=== PATIENT | female | born 2000 | race Caucasian/White ===

== ENCOUNTER 2018-03-23 11:32 | Emergency (ER) | payer OTHER ==
[2018-03-23 11:35] VITALS: TEMP 36.8
[2018-03-23] MEDS ORDERED: VALA1TAB31 PO (12:26)
--- NOTE | 2018-03-23 12:28 | EMERGENCY ROOM VISIT NOTE ---
History First contact with patient: 11:56 Chief Complaint: PELVIC PAIN Stated Complaint: VAGINAL BURNING AND SWELLING History of Present Illness The patient is a 18 year old female who presents to the Emergency Room with complaints of pain and swelling of her labia. Patient states that she started with the symptoms on and have been getting progressively worse. The patient thought at first that she had a UTI and just took some cranberry but that did not help. She then noticed some sores on her labia and in the genital region. The patient also admits to mild pruritus in the vaginal area. The patient denies any nausea vomiting or abdominal pain. She does admit to some discharge which she describes as white and thick. The patient denies any history of STDs. The patient is currently sexually active with her recent partner for the last 2-1/2 months. She has had for sexual partners in her lifetime. Her partners sexual history is unknown. She states that her current sexual partner stated that he was tested for all sexually transmitted diseases and was negative. Review of Systems 10 system review was performed and was negative unless stated otherwise history of present illness. Past Medical/Surgical History Asthma Social History Smoking Status: Heavy Tobacco Smoker Physical Exam Vital Signs Date Time Temp Pulse Resp B/P (MAP) Pulse Ox O2 Delivery O2 Flow Rate FiO2 03/23/18 11:35 36.8 74 20 122/57 96 Room Air Physical Exam GENERAL: 18-year-old white female appears in no acute distress. MENTAL Status: Alert and oriented 3. NECK: Supple, no lymphadenopathy noted. No carotid bruits noted. LUNGS: Clear auscultation without wheezes rales or rhonchi. CARDIAC: Regular rate and rhythm without murmur. Pulses is full and equal throughout. BACK: No CVA tenderness noted. ABDOMEN: Positive bowel sounds all 4 quadrants. Soft, nontender to palpation without organomegaly or masses GENITALIA: There are many ulcers noted on both labia minora and a few on the labia majora bilaterally. There is surrounding erythema. A yellow discharge is noted from the vaginal opening EXTREMITIES: No cyanosis or edema noted. Medical Decision & Procedures ED Course Patient was evaluated. Herpes cultures were obtained. I told the patient that I will prophylactically treat her for herpes because that is the most likely diagnosis. The patient is in agreement. Patient was educated on herpes virus. The patient was discharged home in stable condition. Medical Decision Differential diagnosis include genital herpes, chlamydia, gonorrhea, syphilis, UTI With the patient's physical presentation most likely genital herpes. She will prophylactically be treated [place] Drug Monitoring Program Search Results: patient reviewed within database Medication Reconcilliation Current Medication List: was personally reviewed by me Blood Pressure Screening Patient's blood pressure: Normal blood pressure Impression Primary Impression: Genital herpes Departure Information Dispostion Home / Self-Care Condition GOOD Prescriptions Valacyclovir Hcl (VALTREX) 1 Gm Tab 1 TAB PO BID for 10 Days, #20 TAB Prov: Priya Ospina PA-C 03/23/18 Forms HOME CARE DOCUMENTATION FORM, IMPORTANT VISIT INFORMATION, WORK / SCHOOL INSTRUCTIONS Patient Instructions Herpes Dx, My [facility] Additional Instructions Tylenol and/or ibuprofen as needed for pain. Take Valtrex as prescribed. May also use Desitin on the ulcers to prevent burning with urination. Use condoms for all sexual intercourse. Inform all sexual partners of your recent diagnosis. Follow-up with gynecology since you may require recurrent treatment. Also recommend that you be evaluated for any other sexually transmitted diseases. Problem Qualifiers Primary Impression: Genital herpes Herpes simplex infection site: vulvovaginitis Qualified Codes: A60.04 - Herpesviral vulvovaginitis
[2018-03-23] MEDS ORDERED: IBUP200C14 PO (12:31)
[2018-03-23] MEDS ORDERED: PHEN95TA10 PO (12:31)
[2018-03-23 13:11] VITALS: BP 110/67; PULSE 62; O2SAT 98
[2018-03-25 11:35] LABS: HERPES SIMPLEX VIRUS CULT ISOLATED (NOT ISOLATED)
== END 2018-03-23 13:12 | disposition home or self-care (01) ==
LOC: C.EDB 11:33 → C.EDC 13:12
DX: A60.04 Herpesviral vulvovaginitis (principal); J45.909 Unspecified asthma, uncomplicated; Z72.0 Tobacco use